=== PATIENT | female | born 1970 | race Asian ===

== ENCOUNTER 2021-09-02 16:21 | Emergency (ER) | payer OTHER ==
[~2021-09-02] VITALS: Ht 160 cm; Wt 61.0 kg
[2021-09-02 17:15] VITALS: BP 136/72
[2021-09-02] MEDS ORDERED: LIDOCAINE 1% Multi-Dose 20 ML VIAL. INJ ONE (18:00)
[2021-09-02] MEDS ORDERED: LIDOCAINE/EPI/TETRACAINE TOPICAL GEL 3 ML. TP ONE (18:00)
[2021-09-02] MEDS ORDERED: CEPH500C PO (18:08)
[2021-09-02] MEDS ORDERED: IBUP-1007 PO (18:08)
[2021-09-02] MEDS ORDERED: HYDR-2761 PO (18:08)
--- NOTE | 2021-09-02 18:10 | PHYS DOC ---
Past Medical History Past Medical History: No Pertinent History Additional Past Medical Histor: denies Past Surgical History: No Surgical History Additional Past Surgical Histo: denies Smoking Status: Never Smoker Alcohol Use: None Drug Use: None General Adult EDM: Chief Complaint: MULTIPLE COMPLAINTS HPI: HPI: Patient is a 51 year old female who presents with left medial vaginal cellulitis, tenderness, swelling for the last 3 days. Her daughter is interpreting for her. She denies any other past medical history takes no medications earlier. Denies fever, body aches, STD concerns, injury, abnormal vaginal discharge. Patient rates her pain an "tender/burning" 8 out of 10. Review of Systems: Review of Systems: Constitutional: Denies fever or chills. [] Eyes: Denies change in visual acuity. [] HENT: Denies nasal congestion or sore throat. [] Respiratory: Denies cough or shortness of breath. [] Cardiovascular: Denies chest pain or edema. [] GI: Denies abdominal pain, nausea, vomiting, bloody stools or diarrhea. [] : Denies dysuria. + Left labial swelling and pain [] Musculoskeletal: Denies back pain or joint pain. [] Integument: Denies rash. + Vaginal cellulitis [] Neurologic: Denies headache, focal weakness or sensory changes. [] Endocrine: Denies polyuria or polydipsia. [] Lymphatic: Denies swollen glands. [] Psychiatric: Denies depression or anxiety. [] Heart Score: C/O Chest Pain: No Current Medications: Current Medications Medications (Trade) Dose Ordered Sig/Loyd Start Time Stop Time Status Last Admin Dose Admin Lidocaine HCl (Lidocaine 1% 20ml Vial) 20 ml 1X ONCE 09/02/21 18:00 09/02/21 18:01 DC Tetracaine/ Epinephrine/ Lidocaine (Let ([id number]) Gel) 3 ml 1X ONCE 09/02/21 18:00 09/02/21 18:01 DC Allergies: Allergies: Allergies Coded Allergies Type Severity Reaction Last Updated Verified No Known Drug Allergies 08/27/15 No Physical Exam: PE: Constitutional: Well developed, well nourished, no acute distress, non-toxic appearance. [] HENT: Normocephalic, atraumatic, bilateral external ears normal, oropharynx moist, no oral exudates, nose normal. [] Eyes: PERRLA, EOMI, conjunctiva normal, no discharge. [] Neck: Normal range of motion, no tenderness, supple, no stridor. [] Cardiovascular:Heart rate regular rhythm, no murmur [] Lungs & Thorax: Bilateral breath sounds clear to auscultation [] Abdomen: Bowel sounds normal, soft, no tenderness, no masses, no pulsatile masses. [] Skin: Warm, dry, no erythema, no rash. Left labial swelling and tenderness. Soft. [] Back: No tenderness, no CVA tenderness. [] Extremities: No tenderness, no cyanosis, no clubbing, ROM intact, no edema. [] Neurologic: Alert and oriented X 3, normal motor function, normal sensory function, no focal deficits noted. [] Psychologic: Affect normal, judgement normal, mood normal. [] Current Patient Data: Vital Signs: Vital Signs Date Time Temp Pulse Resp B/P (MAP) Pulse Ox O2 Delivery O2 Flow Rate FiO2 09/02/21 17:15 98.7 100 18 136/72 (93) 97 Room Air 98.7 EKG: EKG: [] Radiology/Procedures: Radiology/Procedures: [] Course & Med Decision Making: Course & Med Decision Making Pertinent Labs and Imaging studies reviewed. (See chart for details) See HPI. Alert and oriented x4. Ambulatory steady gait. Skin pink warm and dry. Vital signs within normal limits. She is educated on sitz bath's. I&D Location: Left labia Anesthesia: Lets, lidocaine Scalpel size: 20-gauge needle Skin: No redness or cellulitis but tender Drainage: None Packing: None Patient tolerated the procedure well with no complications. The area was prepped and draped in usual sterile fashion. Area was cleaned with chloehexidine prior to procedure. Return for signs and symptoms of infection education given. Patient to return in 48 hours for wound recheck. [] Dragon Disclaimer: Dragon Disclaimer: This electronic medical record was generated, in whole or in part, using a voice recognition dictation system. Departure Departure Impression: Primary Impression: Labial abscess Disposition: HOME / SELF CARE / HOMELESS Condition: STABLE Referrals: KIRILL PEDROZA MD Patient Instructions: Cellulitis, Sitz Bath Additional Instructions: Follow-up with a recovery room nurse that I put on your paperwork or recovery room nurse of your choosing. You can also follow-up with a primary care doctor. Take medication as prescribed and with food. Take the antibiotic until it is finished. Use sitz bath's as we spoke of as many times a day as you would like. Scripts Hydrocodone Bit/Acetaminophen (HYDROCODONE-APAP 5-325 ) 1 Tab Tablet 1 TAB PO PRN Q6HRS PRN for PAIN, #15 TAB 0 Refills Prov: ЕЛЕНА BINGHAM APRN 09/02/21 Ibuprofen (IBUPROFEN) 600 Mg Tablet 600 MG PO PRN Q6HRS PRN for INFLAMMATION, #30 TAB Prov: ЕЛЕНА BINGHAM APRN 09/02/21 Cephalexin (KEFLEX) 500 Mg Capsule 1 CAP PO QID, #40 CAP Prov: ЕЛЕНА BINGHAM APRN 09/02/21 ЕЛЕНА BINGHAM APRN September 02, 2021 18:10
== END 2021-09-02 18:30 | disposition home or self-care (01) ==
LOC: ER 16:21
DX: N76.4 Abscess of vulva (principal)
CPT/HCPCS: 56420; 99284; J3490